=== PATIENT | female | born 1960 | race Two or more races ===

== ENCOUNTER 2017-07-04 17:55 | Inpatient (IN) ==
[2017-07-04] MEDS ORDERED: NORMAL SALINE 10 ML SYRINGE FLUSH IVP PRN ×2 (18:15→20:44)
[2017-07-04] MEDS ORDERED: Sodium Chloride 0.9% 1,000 ML PRIMARY IV ONE (18:15)
[2017-07-04] MEDS ORDERED: ONDANSETRON 4 MG/2 ML VIAL IVP ONE (18:25)
[2017-07-04] MEDS ORDERED: MORPHINE SULFATE 4 MG/1 ML IVP ONE (18:25)
[2017-07-04 18:34] LABS: BASOPHILS # (AUTO) 0.03 10*3/UL; BASOPHILS % (AUTO) 0.2 % (0-1); EOSINOPHILS # (AUTO) 0.01 10*3/UL; EOSINOPHILS % (AUTO) 0.1 % (0-8); Hematocrit [HCT] 39.9 % (37.0-47.0); Hemoglobin [HGB] 13.3 g/dL (12.0-16.0); LYMPHOCYTES # (AUTO) 1.35 10*3/uL; MEAN CORPUSCULAR HEMOGLOBIN 31.1 PG (27-31); MEAN CORPUSCULAR HGB CONC 33.3 g/dL (33-37); MEAN CORPUSCULAR VOLUME 93.2 FL (81-99); MONOCYTES % (AUTO) 3.7 % (5-15); NEUTROPHILS # (AUTO) 11.48 10*3/UL; NEUTROPHILS % (AUTO) 85.6 % (50-80); RED BLOOD COUNT 4.28 10^6/uL (4.20-5.40)
[2017-07-04 18:44] LABS: BLOOD UREA NITROGEN 10 mg/dL (7-22); BUN/CREATININE RATIO 14.28 (6-20); SERUM ALBUMIN 3.4 g/dL (3.5-4.8)
[2017-07-04 18:45] LABS: PLATELET MORPHOLOGY COMMENT NORMAL MORPHOLOGY (NORM); RBC MORPHOLOGY COMMENT NORMAL MORPHOLOGY (NORM); WBC MORPHOLOGY COMMENT SEE COMMENTS (NORM)
--- NOTE | 2017-07-04 18:49 | PDOC ---
General Adult HPI - General Chief Complaint: Lower Extremity Problem/Injury Stated Complaint: right leg swelling Date Seen by Provider: 07/04/17 Time Seen by Provider: 18:10 Source: POSITIVE: Patient Exam Limitations: POSITIVE: No limitations Nurse's Notes Reviewed & Considered: Yes - History of Present Illness Initial Comment: The patient is a 57-year-old female who presents to the emergency department with right leg pain swelling and redness as well as fever and chills. She states that she felt fine yesterday morning. Sometime yesterday afternoon she had onset of significant chills and fever. She had associated nausea and vomiting yesterday. This morning when she woke up her right foot and lower leg were red and swollen and painful. She also had a tender area in her right medial thigh. She has had continued fevers and chills today which generally improves after she takes Tylenol. She denies any injury to her leg. She is not diabetic. She denies any chest pain or shortness of breath. She does take Premarin for hormone replacement therapy. She does not have any known history of DVT or blood clots. She does have multiple family members who have been treated for MRSA through the years. Have you received a tetanus shot in the past 10 years?: Unknown - Patient Home Medications Home Medications: Home Medications Cyclobenzaprine HCl 1 tab PO TID #30 tab 11/26/16 Estrogens,Conjugated [Premarin] 0.9 mg PO DAILY #30 tab 11/26/16 Furosemide [Lasix] 1 tab PO QD #30 tab 11/26/16 Hydrochlorothiazide 1 tab PO DAILY #30 tab 11/26/16 Omeprazole Magnesium [Prilosec Otc] 20 mg PO daily #30 tab 11/26/16 Potassium Chloride 1 tab PO DAILY #30 tab 11/26/16 Quetiapine Fumarate [Seroquel] 50 mg PO QHS #120 tab 11/26/16 Ranitidine HCl [Zantac] 2 tab PO QHS #60 tab 11/26/16 Venlafaxine HCl [Venlafaxine Hcl Er] 1 tab PO QOD #30 tab 11/26/16 - Patient Allergies Allergies/Adverse Reactions: Allergies 3 Allergy/AdvReac Type Severity Reaction Status Date / Time cefazolin Allergy throat Verified 07/04/17 18:24 swelling Penicillins Allergy unknown Verified 07/04/17 18:24 Past Medical History Past Medical History Reviewed: Other (please comment) (Written nursing documentation reviewed) ROS - Limitations ROS Limitations: No Limitations Constitution: REPORTS: Chills, Fever, Other (She does report generalized weakness and malaise) Cardiovascular: DENIES: Chest Pain, Heart Palpitations Respiratory: DENIES: Hurts To Breathe, Shortness Of Breath Neurological: REPORTS: Denies Neuro Symptoms Gastrointestinal: REPORTS: Nausea, Vomitting (Yesterday, no vomiting today although she has not eaten whole lot today). DENIES: Abdominal Pain Endocrine: REPORTS: Fatigue Genitourinary: REPORTS: Denies Symptoms Eyes: REPORTS: Denies Symptoms ENT: REPORTS: Denies Symptoms General Adult Exam - General Appearance General Appearance: POSITIVE: Alert, Cooperative, No Acute Distress - HEENT HEENT: POSITIVE: Head Inspection Nml, Eyes Inspection Nml, Ears Inspection Nml, Oral/Dental Inspect. Nml - Neck Neck: POSITIVE: Normal Inspection. NEGATIVE: Lymphadenopathy - Respiratory Respiratory: POSITIVE: No Respiratory Distress, Breath Sounds Normal - Cardiovascular Cardiovascular: POSITIVE: Regular Rate & Rhythm, No Murmur Peripheral Pulses: Dorsalis-pedis (R): 2+, Dorsalis-pedis (L): 2+ - Abdomen Abdomen: Soft: (All Quadrants), Denies Tenderness: (All Quadrants), No Guarding : (All Quadrants), No Rebound: (All Quadrants), No Distention: (All Quadrants) - Extremities Additional Extremities Details: Examination the right leg does reveal significant swelling and erythema as well as warmth to the right foot which is most prominent on the lateral and dorsal aspect of the foot, she does have dry cracking skin on her feet, no obvious open wound or drainage, the erythema does extend up to the lateral aspect of her leg, she does have some tenderness in the medial thigh as well as a small bruise located there is well, good dorsalis pedis pulse in the right foot, examination of the left foot reveals no swelling or erythema, she does have dry cracked skin - Neurological / Psychological Neurological: POSITIVE: Oriented X3, Motor Normal, Sensation Normal General Adult Progress - Results Reviewed by me Xrays/CTs/US Reviewed by me: Yes Discussed with Radiologist: Yes Radiology Findings: X-ray of the foot shows no acute abnormalities per radiologist. Ultrasound of the right lower extremity is negative for DVT. CBC and BMP: 07/04/17 18:26 07/04/17 18:26 - Patient's Progress MDM / ED Course: She is afebrile and normotensive here, slightly tachycardic with a heart rate around 100. Blood cultures and lactate were drawn with initial IV start. The patient did receive a 1 L bolus of normal saline. She also received morphine 4 mg and Zofran 4 mg IV for pain and nausea. The ultrasound of her leg was negative for DVT. Her white count was elevated at 13,000 and CRP is 22. Typical presentation is consistent with a right lower extremity cellulitis. After cultures were obtained she was started on vancomycin 1 g IV. I did recommend that the patient be admitted for initial treatment and she has agreed to this treatment plan. Dr. Juan has agreed to admit the patient as well. - Consult Counseled: POSITIVE: Patient, Family, RE: Lab Results, RE: Radiology Results, RE : DX, RE: Need for F/U Patient Care Time - Estimated PCT Patient Care Time (In Minutes): 35 Vital Signs - Recent Vital Signs Vital Signs: Vital Signs (Last 8 hours) Temp Pulse Resp BP Pulse Ox 07/04/17 17:55 98.3 F 108 H 16 113/79 94 - VS Reviewed Vital Signs Reviewed: Yes Discharge Clinical Impression: Cellulitis of right leg Discharge Disposition: Admit to Inpatient Condition: Fair Follow Up With: DIONNE BEASLEY [Primary Care Provider] - Date Decision to Admit to Inpatient: 07/04/17 Time Decision to Admit to Inpatient: 19:50
--- NOTE | 2017-07-04 19:14 | DI ---
EXAM: XR Right Foot Complete, 3 or More Views CLINICAL HISTORY: Physician Notes: Pain and swelling TECHNIQUE: Frontal, lateral and oblique views of the right foot. COMPARISON: No relevant prior studies available. FINDINGS: Bones/joints: Posterior and plantar calcaneal spurs. Talonavicular degenerative spurring. No acute fracture. No dislocation. Soft tissues: Dorsal forefoot swelling. No radiopaque foreign body. IMPRESSION: No fracture or dislocation. Calcaneal and talar navicular spurring.
--- NOTE | 2017-07-04 20:35 | PDOC ---
HPI - History of Present Illness History of Present Illness: This very nice 57-year-old female who started having fever and chills yesterday and felt really sick this morning she woke up with the right lower extremity swollen and red and painful was seen in the ER and diagnosed with right lower extremity cellulitis. She is allergic to penicillin she does have anaphylaxis from it including Ancef she was started on IV vancomycin. She states she feels better now not as sick as yesterday. Past Medical History Medical History: Depression, GERD Tobacco Use: Never Smoker In the Past 12 Months, Have Used or Abuse Any of the Following Substance: None Medication / Allergies Home Medications: Home Medications Medication Instructions Recorded Confirmed Type Cyclobenzaprine HCl 1 tab PO TID #30 tab 11/26/16 07/04/17 Rx Estrogens,Conjugated [Premarin] 0.9 mg PO DAILY #30 tab 11/26/16 07/04/17 Rx Omeprazole Magnesium [Prilosec Otc] 20 mg PO daily #30 tab 11/26/16 07/04/17 Rx Potassium Chloride 1 tab PO DAILY #30 tab 11/26/16 07/04/17 Rx Quetiapine Fumarate [Seroquel] 50 mg PO QHS #120 tab 11/26/16 07/04/17 Rx Ranitidine HCl [Zantac] 2 tab PO QHS #60 tab 11/26/16 07/04/17 Rx Venlafaxine HCl [Venlafaxine Hcl 1 tab PO QOD #30 tab 11/26/16 07/04/17 Rx Er] Allergies/Adverse Reactions: Allergies 3 Allergy/AdvReac Type Severity Reaction Status Date / Time cefazolin Allergy throat Verified 07/04/17 18:24 swelling Penicillins Allergy unknown Verified 07/04/17 18:24 Review of Systems - Review of Systems All Systems: Reviewed & No Additional Complaints Except as Stated - Integumentary Integumentary: DENIES: Negative System Review, Rash, Superficial Wound, Laceration, Puncture Wound, Foreign Body, Itching, Dryness, Ulcers, Color Changes, Moles, Hair Loss, Hirsutism, Other, See HPI - Eye Exam Eye Exam: DENIES: Negative System Review, Acuity Good, Acuity Fair, Acuity Poor , Glasses/Contacts, Vision Loss, Blurring, Redness, Diplopia, Catarats, Other, See HPI - Ear/Nose Exam Ear/Nose Exam: DENIES: Negative System Review, Decreased Hearing, Tinnitus, Otalgia, Sinus Pain, Rhinorrhea, Congestion, Anosmia, Epistaxis, Other, See HPI - Mouth/Throat Mouth/Throat Exam: DENIES: Negative System Review, Dental Problems, Oral Ulcers , Sore Throat, Hoarseness, Dysphagia, Dental Pain, Other, See HPI - Respiratory Respiratory: DENIES: Negative System Review, Cough, Sputum, Dyspnea At Rest, Dyspnea with Exertion, Pleuritic Pain, Hemoptysis, Wheezing, Other, See HPI - Cardiovascular Cardiovascular: DENIES: Negative System Review, Chest Pain, Edema, Syncope, Palpitations, Orthopnea, Paroxysmal Nocturnal Dyspnea, Other, See HPI - Gastrointestinal Gastrointestinal / Abdominal: DENIES: Negative System Review, Nausea, Vomiting, Diarrhea, Constipation, Abdominal Pain, Bloody Stool, Poor Appetite, Heartburn, Regurgitation, Bloating, Lactose Intolerance, Melena, Bright Red Blood per Rectum, Other, See HPI - Genitourinary Genitourinary: DENIES: Negative System Review, Pain, Burning, Hematuria, Incontinence, Urgency, Hesitant Stream, Decreased Stream, Nocutria, Discharge, Sexual Dysfunction, Other, See HPI - Musculoskeletal Musculoskeletal: REPORTS: Other (Right lower extremity swelling some pain) Exam - Vitals Vital Signs: Vital Signs Temperature 98.3 F Temperature Source Temporal Artery Scan Pulse Rate [Telemetry] 108 Respiratory Rate 16 Blood Pressure [Right Arm] 113/79 Pulse Ox 94 Oxygen Delivery Method Room Air Height 5 ft 7 in Weight 300 lb - General General Appearance: No Acute Distress, Cooperative - Head Head Exam: Normal Inspection, Normocephalic - Eye Eye Exam: POSITIVE: Normal Appearance, PERRL, EOMI, No Scleral Icterus - ENT ENT Exam: POSITIVE: Normal Exam, Normal External Ear Exam, Normal Oropharynx, TM 's Normal Bilaterally, Mucous Membranes Moist - Respiratory Respiratory Exam: POSITIVE: Clear to Auscultation - Bilaterally, Breathing Non Labored, Normal To Percussion, Normal to Percussion and Palpation - Rectal Rectal Exam: POSITIVE: Deferred - External Exam: POSITIVE: Deferred Exam: POSITIVE: Deferred - Extremities Additional Extremities Exam Details: Right lower extremity trace edema with some erythema some pain to palpation - Neurological Neurological Exam: POSITIVE: Alert, Oriented x 3, Reflexes Normal, Normal Gait, CN II-XII Intact, No Facial Droop, Speech Intact / Clear, Moves All Extremities Equally, No Fasciculations, No Clonus Results - Labs CBC and BMP: 07/04/17 18:26 07/04/17 18:26 Assessment and Plan - Patient Problems (1) Cellulitis of right leg Current Visit: Yes Status: Acute Comment: Start IV vancomycin pharmacy to manage Code(s): L03.115 - Cellulitis of right lower limb (2) Hypokalemia Current Visit: Yes Status: Acute Comment: Normal saline 125 with 20 of K plus oral Code(s): E87.6 - Hypokalemia
[2017-07-04] MEDS ORDERED: BISACODYL 5 MG TABLET PO PRN (20:44)
[2017-07-04] MEDS ORDERED: Vancomycin-PHA to Dose IV PRN (20:44)
[2017-07-04] MEDS ORDERED: ACETAMINOPHEN 325 MG TABLET PO PRN (20:44)
[2017-07-04] MEDS ORDERED: LIDOCAINE W/ SODIUM BICARB 0.5 ML SYR SUBD PRN (20:44)
[2017-07-04] MEDS ORDERED: DOCUSATE 100 MG CAPSULE PO PRN (20:44)
[2017-07-04] MEDS ORDERED: Zolpidem Tab 5 MG TAB PO PRN (20:44)
[2017-07-04] MEDS ORDERED: MAG HYDROX/AL HYDROX/SIMETH 30 ML SUSP PO PRN (20:44)
[2017-07-04] MEDS ORDERED: VENLAFAXINE HCL PO SCH (20:44)
[2017-07-04] MEDS ORDERED: HYDROcodone-APAP 5 MG -325 MG TABLET PO PRN (20:44)
[2017-07-04] MEDS ORDERED: ONDANSETRON 4 MG/2 ML VIAL IVP PRN (20:44)
[2017-07-04] MEDS ORDERED: CALCIUM CARBONATE 500 MG (TUMS) CHEWABLE TABLET PO PRN (20:44)
--- NOTE | 2017-07-04 21:16 | DI ---
EXAM: US Duplex Right Lower Extremity Veins CLINICAL HISTORY: Physician Notes: Tech Comments: TECHNIQUE: Real-time ultrasound scan of the veins of the right lower extremity with color Doppler flow, spectral waveform analysis and compression. COMPARISON: No relevant prior studies available. FINDINGS: Deep veins: Unremarkable. No DVT in the visualized common femoral, femoral, proximal deep femoral or popliteal veins. The veins are compressible with normal color flow and augmentation. Superficial veins: Unremarkable. No thrombus in the visualized great saphenous vein. Soft tissues: No acute findings. No popliteal cyst. IMPRESSION: Normal right lower extremity duplex venous ultrasound.
[2017-07-04] MEDS ORDERED: FAMOTIDINE 40 MG TABLET PO SCH (21:30)
[2017-07-04] MEDS ORDERED: QUEtiapine Tab 25 MG TAB PO SCH (21:30)
[2017-07-04] MEDS: CYCLOBENZAPRINE 10 MG TABLET PO SCH (21:46)
[2017-07-04] MEDS: HEPARIN 5000 UNIT/1 ML SUBCUT SCH (21:47)
[2017-07-05] MEDS: POTASSIUM CHLORIDE 20 MEQ TAB PO SCH ×3 (00:29→09:21)
[2017-07-05 04:37] VITALS: O2SAT 94
[2017-07-05] MEDS: HEPARIN 5000 UNIT/1 ML SUBCUT SCH (05:06)
[2017-07-05 06:24] LABS: BASOPHILS # (AUTO) 0.03 10*3/UL; BASOPHILS % (AUTO) 0.4 % (0-1); EOSINOPHILS # (AUTO) 0.04 10*3/UL; EOSINOPHILS % (AUTO) 0.5 % (0-8); Hemoglobin [HGB] 12.8 g/dL (12.0-16.0); LYMPHOCYTES # (AUTO) 2.07 10*3/uL; MEAN CORPUSCULAR HEMOGLOBIN 30.9 PG (27-31); MEAN CORPUSCULAR HGB CONC 32.8 g/dL (33-37); MEAN CORPUSCULAR VOLUME 94.2 FL (81-99); MONOCYTES # (AUTO) 0.33 10*3/UL (0.3-0.8); MONOCYTES % (AUTO) 4.5 % (5-15); NEUTROPHILS # (AUTO) 4.82 10*3/UL; PLATELET MORPHOLOGY COMMENT NORMAL MORPHOLOGY (NORM); RBC MORPHOLOGY COMMENT NORMAL MORPHOLOGY (NORM); RED BLOOD COUNT 4.14 10^6/uL (4.20-5.40); WBC MORPHOLOGY COMMENT NORMAL MORPHOLOGY (NORM)
[2017-07-05 06:33] LABS: BLOOD UREA NITROGEN 6 mg/dL (7-22); SERUM ALBUMIN 3.3 g/dL (3.5-4.8)
[2017-07-05] MEDS ORDERED: OMEPRAZOLE 20 MG CAPSULE PO SCH (07:00)
[2017-07-05 07:10] VITALS: BP 106/70; RESP 17; TEMP 97.6
[2017-07-05] MEDS ORDERED: ESTROGENS CONJUGATED 0.9 MG PO SCH ×2 (09:00→21:00)
[2017-07-05] MEDS ORDERED: POTASSIUM CHLORIDE 20 MEQ TAB PO SCH (09:00)
[2017-07-05] MEDS: CYCLOBENZAPRINE 10 MG TABLET PO SCH ×2 (09:21→09:25)
--- NOTE | 2017-07-05 10:35 | PDOC(PROG) ---
Interval History: Final Discharge Diagnosis: Current Visit Problems Problem Status Onset Code Cellulitis of right leg Acute L03.115 Hypokalemia Acute E87.6 Diagnostic Data, Laboratory Data, and Procedures of Signifigance: Laboratory Results 07/04/17 07/04/17 07/04/17 Range/Units 18:26 18:26 18:26 WBC 13.41 H (4.8-10.8) 10^3/uL RBC 4.28 (4.20-5.40) 10^6/uL Hgb 13.3 (12.0-16.0) g/dL Hct 39.9 (37.0-47.0) % MCV 93.2 (81-99) FL MCH 31.1 H (27-31) PG MCHC 33.3 (33-37) g/dL RDW Std Deviation 45.9 (39-50) fL RDW Coeff of Natali 13.7 (11.5-14.5) % Plt Count 170 (140-350) 10*3/uL MPV 9.0 (7.4-12.2) FL Immature Gran % (Auto) 0.3 (0-5) % Neut % (Auto) 85.6 H (50-80) % Lymph % (Auto) 10.1 (10-50) % Emmons % (Auto) 3.7 L (5-15) % Eos % (Auto) 0.1 (0-8) % Baso % (Auto) 0.2 (0-1) % Immature Gran # (Auto) 0.04 10*3/UL Neut # (Auto) 11.48 10*3/UL Lymph # (Auto) 1.35 10*3/uL Emmons # (Auto) 0.50 (0.3-0.8) 10*3/UL Eos # (Auto) 0.01 10*3/UL Baso # (Auto) 0.03 10*3/UL WBC Morphology Comment See comments (NORM) Plt Morphology Comment Normal morphology (NORM) RBC Morph Comment Normal morphology (NORM) D-Dimer 0.71 H (0.00-0.59) mg/L Sodium 136 (135-145) meq/L Potassium 3.6 L (3.8-5.2) meq/L Chloride 103 (98-112) meq/L Carbon Dioxide 21 L (23-33) meq/L Anion Gap 12 (5-20) BUN 10 (7-22) mg/dL Creatinine 0.7 (0.50-1.20) mg/dL Estimated GFR > 60 (>60 ml/min/1.73m(2)) BUN/Creatinine Ratio 14.28 (6-20) Glucose 131 H (78-110) mg/dL Calculated Osmolality 282.0 (267-292) mOsm/kg Lactic Acid 1.8 (0.70-2.10) MMOL/L Uric Acid (2.5-7.5) mg/dl Calcium 8.7 (8.7-10.7) mg/dL Total Bilirubin 0.5 (0.3-1.2) mg/dL AST 22 (8-39) IU/L ALT 29 (9-52) IU/L Alkaline Phosphatase 66 (38-126) IU/L C-Reactive Protein 22.2 H (0.0-0.9) mg/dL Total Protein 6.8 (6.1-8.0) g/dL Albumin 3.4 L (3.5-4.8) g/dL Globulin 3.4 (2.50-4.10) g/dL Albumin/Globulin Ratio 1.00 L (1.3-2.0) mg/g 07/04/17 07/05/17 07/05/17 Range/Units 18:26 06:05 06:05 WBC 7.31 (4.8-10.8) 10^3/uL RBC 4.14 L (4.20-5.40) 10^6/uL Hgb 12.8 (12.0-16.0) g/dL Hct 39.0 (37.0-47.0) % MCV 94.2 (81-99) FL MCH 30.9 (27-31) PG MCHC 32.8 L (33-37) g/dL RDW Std Deviation 46.2 (39-50) fL RDW Coeff of Natali 13.8 (11.5-14.5) % Plt Count 141 (140-350) 10*3/uL MPV 9.0 (7.4-12.2) FL Immature Gran % (Auto) 0.3 (0-5) % Neut % (Auto) 66.0 (50-80) % Lymph % (Auto) 28.3 (10-50) % Emmons % (Auto) 4.5 L (5-15) % Eos % (Auto) 0.5 (0-8) % Baso % (Auto) 0.4 (0-1) % Immature Gran # (Auto) 0.02 10*3/UL Neut # (Auto) 4.82 10*3/UL Lymph # (Auto) 2.07 10*3/uL Emmons # (Auto) 0.33 (0.3-0.8) 10*3/UL Eos # (Auto) 0.04 10*3/UL Baso # (Auto) 0.03 10*3/UL WBC Morphology Comment Normal morphology (NORM) Plt Morphology Comment Normal morphology (NORM) RBC Morph Comment Normal morphology (NORM) D-Dimer (0.00-0.59) mg/L Sodium 140 (135-145) meq/L Potassium 3.9 (3.8-5.2) meq/L Chloride 108 (98-112) meq/L Carbon Dioxide 22 L (23-33) meq/L Anion Gap 10 (5-20) BUN 6 L (7-22) mg/dL Creatinine 0.6 (0.50-1.20) mg/dL Estimated GFR > 60 (>60 ml/min/1.73m(2)) BUN/Creatinine Ratio 10.00 (6-20) Glucose 86 (78-110) mg/dL Calculated Osmolality 286.0 (267-292) mOsm/kg Lactic Acid (0.70-2.10) MMOL/L Uric Acid 6.3 (2.5-7.5) mg/dl Calcium 8.3 L (8.7-10.7) mg/dL Total Bilirubin 0.5 (0.3-1.2) mg/dL AST 34 (8-39) IU/L ALT 36 (9-52) IU/L Alkaline Phosphatase 91 (38-126) IU/L C-Reactive Protein (0.0-0.9) mg/dL Total Protein 6.5 (6.1-8.0) g/dL Albumin 3.3 L (3.5-4.8) g/dL Globulin 3.2 (2.50-4.10) g/dL Albumin/Globulin Ratio 1.00 L (1.3-2.0) mg/g History and Physical pertinent to Admission: Course of Hospitalization: Patient was hospitalized last evening with the right lower extremity cellulitis today it was much improved they're still some mild pain and redness is down I consult with infectious disease patient can be discharged home on 450 of [address] for 10 days which I faxed to her pharmacy On the date of discharge, the patient was examined: Gen.: No acute distress, alert, nontoxic Heart: Regular rate and rhythm, no murmurs, clicks, gallops, or rubs Lungs: Clear to auscultation bilaterally, breathing is nonlabored Abdomen/GI: Normal tones on auscultation, soft, nontender, nondistended Musculoskeletal/extremities: No clubbing, cyanosis, or edema Vitals reviewed and are listed below Assessment and Plan: 1. As per discharge assessments above 2. Disposition: Follow up with her Dr. Ramirez 3. Condition on discharge, stable and improved. 4. Diet: regular diet 5. Activities: resume normal activities 6. Follow-Up: 1. PCP 2. 7. Medications at the Time of Discharge: Home Medications Medication Instructions Recorded Confirmed Type Cyclobenzaprine HCl 1 tab PO TID #30 tab 11/26/16 07/04/17 Rx Estrogens,Conjugated [Premarin] 0.9 mg PO DAILY #30 tab 11/26/16 07/04/17 Rx Omeprazole Magnesium [Prilosec Otc] 20 mg PO daily #30 tab 11/26/16 07/04/17 Rx Potassium Chloride 1 tab PO DAILY #30 tab 11/26/16 07/04/17 Rx Quetiapine Fumarate [Seroquel] 50 mg PO QHS #120 tab 11/26/16 07/04/17 Rx Ranitidine HCl [Zantac] 2 tab PO QHS #60 tab 11/26/16 07/04/17 Rx Venlafaxine HCl [Venlafaxine HCl 1 tab PO QOD #30 tab 11/26/16 07/04/17 Rx ER] Acetaminophen [Tylenol] 650 mg PO Q6H PRN tab 07/05/17 Rx Calcium Carbonate [Tums] 1 - 2 tab PO Q6H PRN tab.chew 07/05/17 Rx Clindamycin HCl [Cleocin HCl] 450 mg PO TID #30 cap 07/05/17 Rx QUEtiapine Tab [SEROquel Tab] 50 mg PO BEDTIME tab 07/05/17 Rx 3 Generic Name Dose Route Start Last Admin Trade Name Freq PRN Reason Stop Dose Admin Acetaminophen 650 mg 07/04/17 20:44 07/04/17 21:46 Tylenol PO 650 mg Q6H PRN Administration Pain or Fever Hydrocodone Bitart/Acetaminophen 1 tab 07/04/17 20:44 07/05/17 02:14 [place] 5/325 Tab PO 1 tab Q4H PRN Administration Pain Al Hydroxide/Mg Hydroxide 20 ml 07/04/17 20:44 Mylanta Liquid PO Q6H PRN Dyspepsia Bisacodyl 10 mg 07/04/17 20:44 Dulcolax Tab PO BID PRN Constipation Calcium Carbonate 1 - 2 tab 07/04/17 20:44 Tums PO Q6H PRN Heartburn Clindamycin HCl 450 mg 07/05/17 15:00 Cleocin Hcl PO TID SHIV Cyclobenzaprine HCl 10 mg 07/04/17 21:00 07/05/17 09:25 Flexeril PO Not Given TID SHIV Docusate Sodium 100 mg 07/04/17 20:44 Colace PO BID PRN Constipation Famotidine 40 mg 07/04/17 21:30 07/04/17 21:34 Pepcid PO 40 mg BEDTIME SHIV Administration Heparin Sodium (Porcine) 5,000 unit 07/04/17 21:00 07/05/17 05:06 Heparin Inj SUBCUT 5,000 unit Q8H SHIV Administration Sodium Chloride 25 mls @ 200 mls/hr 07/04/17 20:44 Normal Saline 0.9% IV .Post Infusion PRN No Primary IV for Flush ONLY Vancomycin HCl 1.25 gm/ Sodium 250 mls @ 250 mls/hr 07/05/17 05:00 07/05/17 05:05 Chloride IV 250 mls/hr Q8H SHIV Administration Potassium Chloride/Sodium Chloride 1,000 mls @ 125 mls/hr 07/05/17 08:00 02/13 07:54 Pot Chl 20meq + Ns PRIMARY IV 125 mls/hr .Q8H SHIV Administration Lidocaine HCl 0.5 ml 07/04/17 20:44 Lidocaine Buffered Inj SUBD ONCE PRN IV Starts Own Med : Estrogens, 0.9 mg 07/05/17 21:00 Conjugated [Premarin PO ] 0.9 Mg BEDTIME SHIV Omeprazole 20 mg 07/05/17 07:00 07/05/17 06:25 Prilosec PO 20 mg AC BK SHIV Administration Ondansetron HCl 4 mg 07/04/17 20:44 Zofran Inj IVP Q4H PRN NAUSEA / VOMITING Potassium Chloride 20 meq 07/05/17 09:00 07/05/17 09:21 Klor-Con PO 20 meq DAILY SHIV Administration Potassium Chloride 40 meq 07/04/17 09:00 07/05/17 09:21 Klor-Con PO 40 meq BID SHIV Administration Quetiapine Fumarate 50 mg 07/04/17 21:30 07/04/17 22:00 Seroquel Tab PO 50 mg BEDTIME SHIV Administration Sodium Chloride 5 - 20 ml 07/04/17 20:44 Saline Flush IVP BID PRN Flush Zolpidem Tartrate 5 mg 07/04/17 20:44 Ambien PO BEDTIME PRN Insomnia 8. Time, care, counseling and coordination of care for this discharge is greater than 30 minutes. Objective : Data - Labs CBC and BMP: 07/05/17 06:05 07/05/17 06:05 Assessment and Plan - Patient Problems (1) Cellulitis of right leg Current Visit: Yes Status: Acute Code(s): L03.115 - Cellulitis of right lower limb (2) Hypokalemia Current Visit: Yes Status: Acute Code(s): E87.6 - Hypokalemia
--- NOTE | 2017-07-05 10:36 | DCSUMMARY ---
Hospitalization Summary Hospital Course: See progress note and H&P less than 24 hours Exam - Vitals Vital Signs: Vital Signs Temperature 97.6 F Temperature Source Temporal Artery Scan Pulse Rate [Pulse Oximeter] 100 Pulse Rate [Telemetry] 108 Respiratory Rate 17 Blood Pressure [Right Radial 106/70 Artery] Blood Pressure [Right Arm] 103/63 Pulse Ox 94 Oxygen Delivery Method Room Air Height 5 ft 7 in Weight 315 lb 3.2 oz Patient Problems - Patient Problem List (1) Cellulitis of right leg Current Visit: Yes Status: Acute Code(s): L03.115 - Cellulitis of right lower limb Category: Medical (2) Hypokalemia Current Visit: Yes Status: Acute Code(s): E87.6 - Hypokalemia Category: Medical
[2017-07-05] MEDS ORDERED: CLINDAMYCIN 150 MG CAPSULE PO SCH (15:00)
== END 2017-07-05 11:17 | disposition home or self-care (01) | DRG 603 ==
LOC: ER 17:55 → MED/SURG 20:26
PROVIDERS: ADMIT Internal Medicine; ATTEND Internal Medicine